=== PATIENT | female | born 1950 | race Caucasian/White ===

== ENCOUNTER 2023-07-03 14:11 | Outpatient (AMB) | payer MEDICARE, OTHER, SELFPAY ==
--- NOTE | 2023-07-03 14:13 | A.OFFVIS_ITS ---
Intake Vital Signs 3 07/03/23 14:19 Height 5 ft 6.5 in Weight 143 lb BMI 22.7 Blood Pressure Location Lt brachial Position Sitting Respiration 12 Pulse 86 Pulse Source Pulse Oximeter Pulse Oximetry (%) 98 Oxygen Delivery Method Room Air Intake Visit Reasons: CHRONIC LOW BACK PAIN Allergies Penicillins Allergy (Severe, Verified 07/03/23 14:26) Anaphylaxis Sulfa (Sulfonamide Antibiotics) Allergy (Severe, Verified 07/03/23 14:26) Anaphylaxis cefaclor Adverse Reaction (Severe, Verified 07/03/23 14:26) Hives ciprofloxacin Adverse Reaction (Severe, Verified 07/03/23 14:26) Hives clindamycin Adverse Reaction (Severe, Verified 07/03/23 14:26) Rash codeine Adverse Reaction (Severe, Verified 07/03/23 14:26) Itching iodine Adverse Reaction (Severe, Verified 07/03/23 14:26) Hives morphine Adverse Reaction (Severe, Verified 07/03/23 14:26) Rash moxifloxacin Adverse Reaction (Severe, Verified 07/03/23 14:26) hives pregabalin Adverse Reaction (Severe, Verified 07/03/23 14:26) cramps Medication List - Last Reconciled 07/03/23 by Concha Owens LPN albuterol sulfate 90 mcg/actuation inhalation bupropion HCl 75 mg PO QAM estradiol transdermal estradiol 0.01%(0.1mg/gram) vaginal famotidine 40 mg PO DAILY hydrochlorothiazide 12.5 mg PO DAILY hydrocodone-acetaminophen 10-325 mg 1 tab PO BID PRN levothyroxine 88 mcg PO DAILY lorazepam 1 mg PO TID meloxicam 7.5 mg PO BID nicotine (Nicotrol) inhalation perindopril erbumine 2 mg PO DAILY tizanidine 2 mg PO Q8H PRN zafirlukast 20 mg PO BID HPI HPI Comments 2 History of Present Illness0 Details Rohini is a very pleasant 73-year-old female presents the office for evaluation management of her chronic lower back pain Patient has been suffering with this pain for many years but it became much worse over the last 6 months and even worse over the last week. She recently moved and had to carry things up stairs in the process and then this week was shoveling snow which exacerbated her pain. She was seen at [facility] and told they do not offer trigger point and could do spinal injections but she did not want to proceed with treatment at their office. She felt the provider was short and didn't listen. Patient has failed almost 1 year of conservative therapy including NSAIDs, muscle relaxers, opioid medications and HEP all without improvement in her pain. Patient cannot take lyrica or gabapentin, did not tolerate in past. She reports pain to left buttocks radiating into left groin and thigh. She has noticed left calf muscle spasms and some numbness/tingling of the left leg. Patient denies new loss of bowel, bladder or saddle anesthesia. Patient has not been prescribed any steroid medications for this pain over the last year, she tolerates prednisone only at low dose and does not take more than 10mg daily. In terms of muscle damage condition is described as aching, stabbing, cramping, shooting, hot, burning, sharp, squeezing, pins and needles. Pain is negatively impacting patients enjoyment of life, general activity, mood, recreational activities, relationships with people, sleep and walking Review of Systems Const All systems reviewed & are unremarkable except as noted in HPI and below Physical Exam Vital Signs: Last Vital Signs Pulse 86 07/03/23 14:19 Resp 12 07/03/23 14:19 Pulse Ox 98 07/03/23 14:19 Oxygen Delivery Method Room Air 07/03/23 14:19 BMI result Body Mass Index 22.7 General: awake, alert, oriented. Answers questions appropriately. Fully engaged in examination. Skin: warm, dry, intact HEENT: Normocephalic. Hearing intact. Cardiac: External chest normal in appearance. Respiratory: No cough, audible wheezing or stridor. Abdomen: without gross distension. MS: No obvious swelling or deformities. Able to transition from sit to stand unassisted. Ambulates with bilaterally normal heel strike and toe off Tenderness left PSIS Jorje positive bilaterally SI compression positive Left Gaenslen positive left SLR positive left Thigh thrust positive left Tenderness lumbar paraspinal muscles Decreased lumbar ROM Neurological: Oriented to person, place, time and situation. Thought process intact. Psychiatric: Appropriate mood and affect. Good judgment and insight. Results Reviewed Results Reviewed: 06/21/2023 MRI LS Assessment & Plan Assessment & Plan (1) Lumbar facet arthropathy: Code(s): M47.816 - Spondylosis without myelopathy or radiculopathy, lumbar region (2) Sacroiliac joint dysfunction of left side: Code(s): M53.3 - Sacrococcygeal disorders, not elsewhere classified (3) Neuropathy: Comment: RLE Code(s): G62.9 - Polyneuropathy, unspecified Plan Rohini is a very pleasant 73 year female who presents to the office today for evaluation management of her chronic lower back pain. History, physical exam and provocative testing consistent with lumbar spondylosis and left sacroiliac joint dysfunction. Zynex Tens unit ordered, pamphlet provided and patient instructed on use EMG ordered to evaluate for left lower extremity neuropathy Discussed options for treatment including diagnostic interventional testing, epidural steroid injections, peripheral nerve stimulation with Sprint, RFA and more permanent neuromodulation. Prednisone 5 mg p.o. twice daily. Patient like to try oral steroids to see if this will help with the inflammation pain before proceeding to injections. All questions and concerns have been answered and patient agrees with the plan. Follow up after EMG and sooner if needed. Orders: Orders 2 NE electromyogram (EMG) Today G62.9 - Polyneuropathy, unspecified Medications: New 2 prednisone 5 mg PO BID 14 tabs 0RF Coding Level of Care Code New Pt Level 4 (32435) Diagnoses Lumbar facet arthropathy M47.816 Sacroiliac joint dysfunction of left side M53.3 Neuropathy G62.9
[2023-07-03 14:19] VITALS: PULSE 86; RESP 12; O2SAT 98; BMI 22.7
== END 2023-07-03 15:16 | disposition home or self-care (01) ==
PROVIDERS: PCP Nurse Practitioner Adult Health; Visit Provider Registered Nurse Emergency
DX: M47.816 Spondylosis without myelopathy or radiculopathy, lumbar region (principal); M53.3 Sacrococcygeal disorders, not elsewhere classified; G62.9 Polyneuropathy, unspecified; R20.2 Paresthesia of skin
CPT/HCPCS: 99204

== ENCOUNTER → 2023-07-03 14:11 | Outpatient (BNVA) | payer MEDICARE, OTHER, SELFPAY | PROVIDERS: PCP Nurse Practitioner Adult Health; Visit Provider Registered Nurse Emergency | DX: M47.816 Spondylosis without myelopathy or radiculopathy, lumbar region (principal); M53.3 Sacrococcygeal disorders, not elsewhere classified; G62.9 Polyneuropathy, unspecified | CPT/HCPCS: 99202 ==

== ENCOUNTER 2023-08-09 08:17 | Outpatient (REF) | payer MEDICARE, OTHER, SELFPAY ==
--- NOTE | 2023-08-09 08:20 | EMG_ITS ---
Left tibial and peroneal motor studies were performed. Left superficial peroneal and sural sensory studies were performed. Median and lateral plantar sensory studies were performed. Tibial H-reflex was obtained and paraspinal muscles were tested with a needle. IMPRESSION: 1. [id number] axonal sensory motor peripheral neuropathy. 2. Chronic left lower lumbar radiculopathy. MD PRANAY Garcia/ARIELLA / [id number]
== END 2023-08-09 08:18 | disposition home or self-care (01) ==
LOC: HO.NEURO 08:17
PROVIDERS: PCP Nurse Practitioner Adult Health; Visit Provider Registered Nurse Emergency
DX: R20.2 Paresthesia of skin (principal); G62.9 Polyneuropathy, unspecified
CPT/HCPCS: 95886; 95910

== ENCOUNTER 2023-08-10 10:07 | Day surgery (SDC) | payer MEDICARE, OTHER, SELFPAY ==
--- NOTE | ~2023-08-10 | FL_ITS ---
EXAMINATION: XR FLUOROSCOPY WITH IMAGES CLINICAL INFORMATION: Left SI joint pain COMPARISON: None available. TECHNIQUE: Fluoroscopy Supervised By: Dr. Rk Zarate. Fluoroscopy Time: 0.12 minutes. Cumulative Dose: 0.9837 mGy. DAP: 2.26 Gycm2. Images: 1 image. FINDINGS: A single image of the left SI joint reveals needle positioned adjacent to left SI joint with contrast opacifying the soft tissues adjacent to SI joint. The visualized bones are grossly unremarkable. FL/FL guidance in OR IMPRESSION: Fluoroscopy was provided to referring physician for left SI joint pain management.
[2023-08-10 10:38] VITALS: BMI 24.4
[2023-08-10 10:42] VITALS: BP 127/70; PULSE 68; RESP 16; TEMP 36.4; O2SAT 100
--- NOTE | 2023-08-10 11:15 | MHC.SHP ---
Pre-Procedural Eval Section A - 24 Hr Update-Section A only Date of Service: 08/10/23 The patient is an INPATIENT: No Changes since office visit: Yes Patient answered all questions The patient has been examined within 24 hours of the surgical procedure. The History & Physical has been completed within 30 days and I have reviewed it.: No Section B - Complete if H&P > 30 days Chief Complaint: Sacrococcygeal disorders, not elsewhere classified Details of Present Illness: as above Relevant Family History (Specify if Yes): No Relevant Social History: None Present Medications: see Short Stay [facility] assessment Medical History: No relevant PMH History of Previous Operations: No relevant previous surgery Allergies: Allergies Allergy/AdvReac Type Severity Reaction Status Date / Time Penicillins Allergy Severe Anaphylaxis Verified 07/03/23 14:26 Sulfa (Sulfonamide Allergy Severe Anaphylaxis Verified 07/03/23 14:26 Antibiotics) cefaclor AdvReac Severe Hives Verified 07/03/23 14:26 ciprofloxacin AdvReac Severe Hives Verified 07/03/23 14:26 clindamycin AdvReac Severe Rash Verified 07/03/23 14:26 codeine AdvReac Severe Itching Verified 07/03/23 14:26 iodine AdvReac Severe Hives Verified 07/03/23 14:26 morphine AdvReac Severe Rash Verified 07/03/23 14:26 moxifloxacin AdvReac Severe hives Verified 07/03/23 14:26 pregabalin AdvReac Severe cramps Verified 07/03/23 14:26 Review of Systems Sugical H&P ROS: Negative: Constitution, Cardiovascular, Respiratory, Neurological, Psychiatric, Allergic/Immunologic, Gastrointestinal, Genitourinary, Musculoskeletal, Integumentary, Endocrine and Eyes/Ears/Nose/Throat and Yes, Specify: Hem-Onc (Factor V Leiden, not of blood thinners.) Exam Surgical H&P Exam: Normal: HEENT, Normal: Heart, Normal: Lungs, Normal: Extremities, Normal: Abdomen, Normal: Skin and Normal: Neurological Plan Diagnosis/Plan: Unchanged I have reviewed the history and physical and performed a pertinent physical examination on my patient. No changes have occurred unless specified. Time Spent With Patient Time: Total time managing care of this patient today ___15_ minutes.
--- NOTE | 2023-08-10 11:48 | PM.OP ---
Brief Operative Note Date of Service: 08/10/23 Pre-op diagnosis: Sacroiliitis Post-op diagnosis: same Procedure: diagnostic left SI joint injection. Surgeon: Rk Zarate MD Anesthesia: local Was an Rotary Veneer Machine Operator used for this Procedure?: No Estimated blood loss (mL): 0 Condition: stable Disposition: PACU
[2023-08-10 11:49] VITALS: BP 138/69; PULSE 59; TEMP 36.6; O2SAT 100
--- NOTE | 2023-08-10 11:53 | W.PM.OPN ---
Operative Note Operative Note Date of Service: 08/10/23 Narrative: left diagnostic sacroiliac joint injection Informed consent was explained thoroughly to the patient.? All questions about benefits and risks for the procedure were answered. Patient came to the operating room and was positioned prone on the operating table with the pillow under her abdomen. Time out was performed delineating name and of the patient, site and side of the procedure, nature of the procedure and potential patient?s risks. The lower back of the patient and upper buttocks was prepped with ChloraPrep prepped and draped with sterile utility drapes.? C-arm was brought over the operating field and square picture of patient's pelvis was demonstrated on the screen.? For the left-joint tilting C-arm contralateral to the site of the joint the posterior joint silhouette was delineated on the screen. Skin projection of the joint was chosen as a target of the injection and it was injected ?slightly medial to the location of the joint with 25 gauge needle using local ropivacaine0.5% without epinephrine. After that 22 gauge 3 and 1/2 inch needle was driven to the joint silhouette in tunnel vision fashion.? When needle entered the joint capsule injection of the contrast was performed demonstrating intra-articular spread of the contrast.? After that 5 cc. of ropivacaine 0.5% was injected into the joint. Upon completion of the injections the needle was removed and sterile dressing was applied.? Upon completion of the injection patient was awaken taken outside of the operating room to the recovery room where recovered uneventfully.?
== END 2023-08-10 12:22 | disposition home or self-care (01) ==
PROVIDERS: PCP Nurse Practitioner Adult Health; Visit Provider Anesthesiology
PROC: 3E0U33Z Introduction of Anti-inflammatory into Joints, Percutaneous Approach (ICD-10-PCS; CPT 27096; principal; 2023-08-10 13:10)
DX: M46.1 Sacroiliitis, not elsewhere classified (principal); M53.3 Sacrococcygeal disorders, not elsewhere classified; G89.29 Other chronic pain; M47.816 Spondylosis without myelopathy or radiculopathy, lumbar region; G62.9 Polyneuropathy, unspecified; Z79.899 Other long term (current) drug therapy; Z88.0 Allergy status to penicillin; Z88.1 Allergy status to other antibiotic agents; Z88.2 Allergy status to sulfonamides; Z88.5 Allergy status to narcotic agent; Z91.041 Radiographic dye allergy status
CPT/HCPCS: G0260; J2795; Q9965; Q9967

== ENCOUNTER → 2023-08-10 10:07 | Outpatient (BNV) | payer MEDICARE, OTHER, SELFPAY | PROVIDERS: PCP Nurse Practitioner Adult Health; Visit Provider Anesthesiology | DX: M53.3 Sacrococcygeal disorders, not elsewhere classified (principal) | CPT/HCPCS: 27096 ==

== ENCOUNTER 2023-08-15 14:23 | Outpatient (AMB) | payer MEDICARE, OTHER, SELFPAY ==
--- NOTE | 2023-08-15 14:25 | MHC.OFFVIS ---
Intake Vital Signs 08/15/23 14:30 Height 5 ft 6.5 in Weight 149 lb 8 oz BMI 23.8 BP 134/80 Blood Pressure Location Lt brachial Position Sitting Respiration 14 Pulse 89 Pulse Source Pulse Oximeter Pulse Oximetry (%) 97 Oxygen Delivery Method Room Air Intake Visit Reasons: S/p Dx SIJ Injection 08/10/23 Intake Note: Patient comes in for post-op appointment. Allergies Penicillins Allergy (Severe, Verified 08/15/23 14:30) Anaphylaxis Sulfa (Sulfonamide Antibiotics) Allergy (Severe, Verified 08/15/23 14:30) Anaphylaxis cefaclor Adverse Reaction (Severe, Verified 08/15/23 14:30) Hives ciprofloxacin Adverse Reaction (Severe, Verified 08/15/23 14:30) Hives clindamycin Adverse Reaction (Severe, Verified 08/15/23 14:30) Rash codeine Adverse Reaction (Severe, Verified 08/15/23 14:30) Itching iodine Adverse Reaction (Severe, Verified 08/15/23 14:30) Hives morphine Adverse Reaction (Severe, Verified 08/15/23 14:30) Rash moxifloxacin Adverse Reaction (Severe, Verified 08/15/23 14:30) hives pregabalin Adverse Reaction (Severe, Verified 08/15/23 14:30) cramps lidocaine Adverse Reaction (Unverified 08/15/23 15:36) Hypotension HPI HPI Comments History of Present Illness Details Rohini is back in my office after diagnostic left sacroiliac joint injection. The patient reported allergy to lidocaine so procedure was performed with ropivacaine alone. Patient reported that before the procedure her pain was 3/10. She reported that during the procedure and after the procedure her pain was also 2/10 to 3/10. Therefore diagnostically the sacroiliac joint injection did not demonstrate that sacroiliitis and sacroiliac joint dysfunction is the source of pain generators. Previously she was diagnosed with chronic left radiculopathy by electromyography in Dr. Gross's office. On MRI she has moderate to severe spinal canal stenosis at L4-5 with ligamentum flavum hypertrophy and possible nerve root compression. I offered today for the patient to perform transforaminal L4-5 epidural steroid injection as a diagnostic and possibly therapeutic procedure. I also offered her for consideration possibility of referral to her to a neurosurgeon, we discussed possibility of development of pelvic organ dysfunction as a result of progression of the spinal stenosis. The patient citing multiple social obligations refused to consider at least for now to go for neurosurgical consult but she agreed to go for transforaminal epidural steroid injection as above. We decided that we will try to perform this procedure when her pain is the most severe. I will schedule transforaminal epidural steroid injection for her after August 31. Patient has been suffering with this pain for many years but it became much worse over the last 6 months and even worse over the last week. She recently moved and had to carry things up stairs in the process and then this week was shoveling snow which exacerbated her pain. She was seen at [facility] and told they do not offer trigger point and could do spinal injections but she did not want to proceed with treatment at their office. She felt the provider was short and didn't listen. Patient has failed almost 1 year of conservative therapy including NSAIDs, muscle relaxers, opioid medications and HEP all without improvement in her pain. Patient cannot take lyrica or gabapentin, did not tolerate in past. She reports pain to left buttocks radiating into left groin and thigh. She has noticed left calf muscle spasms and some numbness/tingling of the left leg. Patient denies new loss of bowel, bladder or saddle anesthesia. Patient has not been prescribed any steroid medications for this pain over the last year, she tolerates prednisone only at low dose and does not take more than 10mg daily. In terms of muscle damage condition is described as aching, stabbing, cramping, shooting, hot, burning, sharp, squeezing, pins and needles. Pain is negatively impacting patients enjoyment of life, general activity, mood, recreational activities, relationships with people, sleep and walking [facility] Medical History (Updated 08/15/23 @ 15:40 by Rk Zarate MD) History of tendinitis History of right breast cancer Neuropathy Asthma HTN (hypertension) Surgical History (Updated 08/10/23 @ 10:50 by Vivek Segura RN) History of section History of hysterectomy History of right mastectomy Review of Systems Const All systems reviewed & are unremarkable except as noted in HPI and below Physical Exam Vital Signs: Last Vital Signs Pulse 89 08/15/23 14:30 Resp 14 08/15/23 14:30 BP 134/80 08/15/23 14:30 Pulse Ox 97 02/21/24 14:30 Oxygen Delivery Method Room Air 08/15/23 14:30 BMI result Body Mass Index 23.8 General: awake, alert, oriented. Answers questions appropriately. Fully engaged in examination. Skin: warm, dry, intact HEENT: Normocephalic. Hearing intact. Cardiac: External chest normal in appearance. Respiratory: No cough, audible wheezing or stridor. Abdomen: without gross distension. MS: No obvious swelling or deformities. Able to transition from sit to stand unassisted. Ambulates with bilaterally normal heel strike and toe off Tenderness left PSIS Jorje positive bilaterally SI compression positive Left Gaenslen positive left SLR positive left Thigh thrust positive left Tenderness lumbar paraspinal muscles Decreased lumbar ROM Neurological: Oriented to person, place, time and situation. Thought process intact. Psychiatric: Appropriate mood and affect. Good judgment and insight. Results Reviewed Results Reviewed: 06/21/2023 MRI LS Assessment & Plan Assessment & Plan (1) Lumbar facet arthropathy: Code(s): M47.816 - Spondylosis without myelopathy or radiculopathy, lumbar region (2) Sacroiliac joint dysfunction of left side: Code(s): M53.3 - Sacrococcygeal disorders, not elsewhere classified (3) Neuropathy: Comment: LLE Code(s): G62.9 - Polyneuropathy, unspecified (4) Radiculopathy, lumbar region: Code(s): M54.16 - Radiculopathy, lumbar region (5) Disc degeneration, lumbar: Code(s): M51.36 - Other intervertebral disc degeneration, lumbar region Plan Negative results of diagnostic sacroiliac joint injection on the left. MRI results are as above. EMG resulted in chronic left radiculopathy as well as axonal neuropathy. Will schedule her for transforaminal left L4-5 epidural steroid injection, we will avoid lidocaine on injection patient reported allergy to lidocaine. We will perform it with ropivacaine and triamcinolone. She reported that she received presumable lidocaine injections in [facility] which resulted in dizziness fainting and drop of the blood pressure. Unlikely reaction to the steroids because she received steroids after that for the injection into joints. Will prefer to perform this injection when the pain of the patient is most severe. We will schedule this procedure after 09/01/2023. Patient Instructions: I here by testify that I spent 30 minutes in conversation with this patient as well as planning her care, evaluating her prior records, evaluating prior diagnostic studies and organizing this note. Coding Level of Care Code Est Pt Level 4 (46392) Diagnoses Lumbar facet arthropathy M47.816 Sacroiliac joint dysfunction of left side M53.3 Neuropathy G62.9 Radiculopathy, lumbar region M54.16 Disc degeneration, lumbar M51.36
[2023-08-15 14:30] VITALS: BP 134/80; PULSE 89; RESP 14; O2SAT 97; BMI 23.8
== END 2023-08-15 15:10 | disposition home or self-care (01) ==
PROVIDERS: PCP Nurse Practitioner Adult Health; Visit Provider Anesthesiology
DX: M47.816 Spondylosis without myelopathy or radiculopathy, lumbar region (principal); M53.3 Sacrococcygeal disorders, not elsewhere classified; G62.9 Polyneuropathy, unspecified; M54.16 Radiculopathy, lumbar region; M51.36 Other intervertebral disc degeneration, lumbar region
CPT/HCPCS: 99214

== ENCOUNTER → 2023-08-15 14:23 | Outpatient (BNVA) | payer MEDICARE, OTHER, SELFPAY | PROVIDERS: PCP Nurse Practitioner Adult Health; Visit Provider Anesthesiology | DX: M47.816 Spondylosis without myelopathy or radiculopathy, lumbar region (principal); M53.3 Sacrococcygeal disorders, not elsewhere classified; M54.16 Radiculopathy, lumbar region; M51.36 Other intervertebral disc degeneration, lumbar region; G62.9 Polyneuropathy, unspecified | CPT/HCPCS: 99212 ==

== ENCOUNTER 2023-09-18 06:10 | Outpatient (REF) | payer MEDICARE, OTHER, SELFPAY ==
--- NOTE | ~2023-09-18 | FL_ITS ---
EXAMINATION: XR FLUOROSCOPY WITH IMAGES CLINICAL INFORMATION: Lumbar radiculopathy COMPARISON: None available. TECHNIQUE: Fluoroscopy Supervised By: Dr. Rk Zarate. Fluoroscopy Time: 0.5 minutes. Cumulative Dose: 9.11 mGy. DAP: 0.158 Gycm2. Images: 3. FINDINGS: Spinal needle within the left transforaminal space at L4/L5 with contrast injection FL/FL guidance in treatment room IMPRESSION: Left L4/L5 transforaminal injection
== END 2023-09-18 06:11 | disposition home or self-care (01) ==
LOC: CF 06:10
PROVIDERS: Visit Provider Anesthesiology
DX: M54.16 Radiculopathy, lumbar region (principal); M51.36 Other intervertebral disc degeneration, lumbar region
CPT/HCPCS: 64483; J2401; J3301; Q9967

== ENCOUNTER 2023-09-18 09:22 | Outpatient (AMB) | payer MEDICARE, OTHER, SELFPAY ==
[2023-09-18 09:35] VITALS: BP 118/70; PULSE 80; RESP 18; O2SAT 99; BMI 24.0
--- NOTE | 2023-09-18 09:35 | A.OFFVIS_ITS ---
Intake Vital Signs 09/18/23 09:35 09/18/23 10:46 Height 5 ft 6 in Weight 149 lb BMI 24.0 BP 118/70 122/70 Blood Pressure Location Lt brachial Lt brachial Position Sitting Sitting Respiration 18 16 Pulse 80 88 Pulse Source Pulse Oximeter Pulse Oximeter Pulse Oximetry (%) 99 97 Oxygen Delivery Method Room Air Room Air Comment Pre-Op Post-Op Intake Visit Reasons: LEFT L4, L5 TFESI/NO LIDOCAINE Allergies Penicillins Allergy (Severe, Verified 08/15/23 14:30) Anaphylaxis Sulfa (Sulfonamide Antibiotics) Allergy (Severe, Verified 08/15/23 14:30) Anaphylaxis cefaclor Adverse Reaction (Severe, Verified 08/15/23 14:30) Hives ciprofloxacin Adverse Reaction (Severe, Verified 08/15/23 14:30) Hives clindamycin Adverse Reaction (Severe, Verified 08/15/23 14:30) Rash codeine Adverse Reaction (Severe, Verified 08/15/23 14:30) Itching iodine Adverse Reaction (Severe, Verified 08/15/23 14:30) Hives morphine Adverse Reaction (Severe, Verified 08/15/23 14:30) Rash moxifloxacin Adverse Reaction (Severe, Verified 08/15/23 14:30) hives pregabalin Adverse Reaction (Severe, Verified 08/15/23 14:30) cramps lidocaine Adverse Reaction (Unverified 08/15/23 15:36) Hypotension [facility] Medical History (Updated 08/15/23 @ 15:40 by Rk Zarate MD) History of tendinitis History of right breast cancer Neuropathy Asthma HTN (hypertension) Surgical History (Updated 08/10/23 @ 10:50 by Vivek Segura RN) History of section History of hysterectomy History of right mastectomy Physical Exam Vital Signs: Last Vital Signs Pulse 88 09/18/23 10:46 Resp 16 09/18/23 10:46 BP 122/70 09/18/23 10:46 Pulse Ox 97 09/18/23 10:46 Oxygen Delivery Method Room Air 09/18/23 10:46 BMI result Body Mass Index 24.0 Assessment & Plan Assessment & Plan (1) Disc degeneration, lumbar: Code(s): M51.36 - Other intervertebral disc degeneration, lumbar region (2) Radiculopathy, lumbar region: Code(s): M54.16 - Radiculopathy, lumbar region Plan L4-5 transforaminal epidural steroid injection on the left Transforaminal epidural steroid injection Informed consent was thoroughly explained to the patient before the procedure.? The patient came to the operating room.? He was positioned prone on operating table with a pillow under his abdomen.? Time-out was performed delineating correct site and side of the procedure, nature of the injection, name and date of of the patient. The lower back of the patient was prepped with ChloraPrep and draped with sterile utility towels.? C-arm was brought over the operating field and sq picture L4 vertebra were demonstrated on the screen.? The right side was chosen as the side of the injection.? Tilting machine ipsilateral to the left at the level of L4 the most prominent picture of the left pedicle was obtained on the screen.? 3 mm below the level of the lowest point of the pedicle projection to the skin small amount of chloroprocaine 1% 3-4 cc was injected to anesthetize the skin.? After that 5 in 22 gauge Quincke point needle was inserted through the skin wheal and was advanced to were the L4-5 foramina on anterior posterior , lateral and oblique views intermittently.? When tip of the needle entered foramina projection on AP view injection of the contrast was performed demonstrating epidural and perineural spread of the contrast.? On the lateral view contrast was spread in the epidural fashion. After that injection of the treatment medicine 4 cc of Chloroprocaine 1% mixed with Kenalog 40 mg was injected into the foramina.? Injection of the contrast and injection of the treatment medicine was observed live on the screen.? No intrathecal and no intravascular spread of the contrast was noted Upon completion of the procedure sterile Band-Aids were applied. Patient tolerated procedure well he was taken outside of the operating room where he recovered uneventfully.? He went home without immediate complications. Orders: Orders FL guidance in treatment room Today M54.16 - Radiculopathy, lumbar region Coding Level of Care Code Procedure Only Diagnoses Disc degeneration, lumbar M51.36 Radiculopathy, lumbar region M54.16
[2023-09-18 10:46] VITALS: BP 122/70; PULSE 88; RESP 16; O2SAT 97
== END 2023-09-18 10:51 | disposition home or self-care (01) ==
LOC: HO.PMCPRC 09:22
PROVIDERS: PCP Nurse Practitioner Adult Health; Visit Provider Anesthesiology
DX: M54.16 Radiculopathy, lumbar region (principal)
CPT/HCPCS: 64483

== ENCOUNTER 2023-10-12 09:47 | Outpatient (AMB) | payer MEDICARE, OTHER, SELFPAY ==
[2023-10-12 09:58] VITALS: BP 158/75; PULSE 80; RESP 18; O2SAT 98; BMI 22.8
--- NOTE | 2023-10-12 09:58 | A.OFFVIS_ITS ---
Vital Signs 3 10/12/23 09:58 Height 5 ft 6 in Weight 141 lb 8 oz BMI 22.8 BP 158/75 H Blood Pressure Location Lt brachial Position Sitting Respiration 18 Pulse 80 Pulse Source Pulse Oximeter Pulse Oximetry (%) 98 Oxygen Delivery Method Room Air Intake Visit Reasons: LEFT L4, L5 TFESI/09/18/23 Allergies Penicillins Allergy (Severe, Verified 10/12/23 09:57) Anaphylaxis Sulfa (Sulfonamide Antibiotics) Allergy (Severe, Verified 10/12/23 09:57) Anaphylaxis cefaclor Adverse Reaction (Severe, Verified 10/12/23 09:57) Hives ciprofloxacin Adverse Reaction (Severe, Verified 10/12/23 09:57) Hives clindamycin Adverse Reaction (Severe, Verified 10/12/23 09:57) Rash codeine Adverse Reaction (Severe, Verified 10/12/23 09:57) Itching iodine Adverse Reaction (Severe, Verified 10/12/23 09:57) Hives morphine Adverse Reaction (Severe, Verified 10/12/23 09:57) Rash moxifloxacin Adverse Reaction (Severe, Verified 10/12/23 09:57) hives pregabalin Adverse Reaction (Severe, Verified 10/12/23 09:57) cramps lidocaine Adverse Reaction (Verified 10/12/23 09:57) Hypotension HPI Comments Details: Rohini presents back to the office today for follow-up, 3 weeks status post left L4-5 transforaminal epidural steroid injection Patient tolerated the procedure well She reports 70% pain relief with improvement in functional mobility since the injection. Denies any untoward effects Prior visit with Dr Zarate: Rohini is back in my office after diagnostic left sacroiliac joint injection. The patient reported allergy to lidocaine so procedure was performed with ropivacaine alone. Patient reported that before the procedure her pain was 3/10. She reported that during the procedure and after the procedure her pain was also 2/10 to 3/10. Therefore diagnostically the sacroiliac joint injection did not demonstrate that sacroiliitis and sacroiliac joint dysfunction is the source of pain generators. Previously she was diagnosed with chronic left radiculopathy by electromyography in Dr. Gross's office. On MRI she has moderate to severe spinal canal stenosis at L4-5 with ligamentum flavum hypertrophy and possible nerve root compression. I offered today for the patient to perform transforaminal L4-5 epidural steroid injection as a diagnostic and possibly therapeutic procedure. I also offered her for consideration possibility of referral to her to a neurosurgeon, we discussed possibility of development of pelvic organ dysfunction as a result of progression of the spinal stenosis. The patient citing multiple social obligations refused to consider at least for now to go for neurosurgical consult but she agreed to go for transforaminal epidural steroid injection as above. We decided that we will try to perform this procedure when her pain is the most severe. I will schedule transforaminal epidural steroid injection for her after August 31. Patient has been suffering with this pain for many years but it became much worse over the last 6 months and even worse over the last week. She recently moved and had to carry things up stairs in the process and then this week was shoveling snow which exacerbated her pain. She was seen at [facility] and told they do not offer trigger point and could do spinal injections but she did not want to proceed with treatment at their office. She felt the provider was short and didn't listen. Patient has failed almost 1 year of conservative therapy including NSAIDs, muscle relaxers, opioid medications and HEP all without improvement in her pain. Patient cannot take lyrica or gabapentin, did not tolerate in past. She reports pain to left buttocks radiating into left groin and thigh. She has noticed left calf muscle spasms and some numbness/tingling of the left leg. Patient denies new loss of bowel, bladder or saddle anesthesia. Patient has not been prescribed any steroid medications for this pain over the last year, she tolerates prednisone only at low dose and does not take more than 10mg daily. In terms of muscle damage condition is described as aching, stabbing, cramping, shooting, hot, burning, sharp, squeezing, pins and needles. Pain is negatively impacting patients enjoyment of life, general activity, mood, recreational activities, relationships with people, sleep and walking [facility] Medical History (Updated 08/15/23 @ 15:40 by Rk Zarate MD) History of tendinitis History of right breast cancer Neuropathy Asthma HTN (hypertension) Surgical History (Updated 08/10/23 @ 10:50 by Vivek Segura RN) History of section History of hysterectomy History of right mastectomy Review of Systems Const All systems reviewed & are unremarkable except as noted in HPI and below Physical Exam Vital Signs: Last Vital Signs Pulse 80 10/12/23 09:58 Resp 18 10/12/23 09:58 BP 158/75 H 10/12/23 09:58 Pulse Ox 98 10/12/23 09:58 Oxygen Delivery Method Room Air 10/12/23 09:58 BMI result Body Mass Index 22.8 General: awake, alert, oriented. Answers questions appropriately. Fully engaged in examination. Skin: warm, dry, intact HEENT: Normocephalic. Hearing intact. Cardiac: External chest normal in appearance. Respiratory: No cough, audible wheezing or stridor. Abdomen: without gross distension. MS: No obvious swelling or deformities. Able to transition from sit to stand unassisted. Ambulates with bilaterally normal heel strike and toe off Neurological: Oriented to person, place, time and situation. Thought process intact. Psychiatric: Appropriate mood and affect. Good judgment and insight. Results Reviewed Results Reviewed: 06/21/2023 MRI LS Assessment & Plan Assessment & Plan (1) Lumbar facet arthropathy: Code(s): M47.816 - Spondylosis without myelopathy or radiculopathy, lumbar region Category: Medical (2) Sacroiliac joint dysfunction of left side: Code(s): M53.3 - Sacrococcygeal disorders, not elsewhere classified Category: Medical (3) Neuropathy: Comment: LLE Code(s): G62.9 - Polyneuropathy, unspecified Category: Medical Plan Rohini is a very pleasant 73 year female who presents to the office today for follow-up 3 weeks status post left L4-5 transforaminal epidural steroid injection She reports 70% pain relief with improvement in functional ability since the injection Denies any untoward effects All questions and concerns have been answered and patient agrees with the plan. Follow up for repeat injection November 2023, sooner if needed.
== END 2023-10-12 10:46 | disposition home or self-care (01) ==
PROVIDERS: PCP Nurse Practitioner Adult Health; Visit Provider Registered Nurse Emergency
DX: M47.816 Spondylosis without myelopathy or radiculopathy, lumbar region (principal); M53.3 Sacrococcygeal disorders, not elsewhere classified; G62.9 Polyneuropathy, unspecified
CPT/HCPCS: 99213

== ENCOUNTER → 2023-10-12 09:47 | Outpatient (BNVA) | payer MEDICARE, OTHER, SELFPAY | PROVIDERS: PCP Nurse Practitioner Adult Health; Visit Provider Registered Nurse Emergency | DX: M47.816 Spondylosis without myelopathy or radiculopathy, lumbar region (principal); M53.3 Sacrococcygeal disorders, not elsewhere classified; G62.9 Polyneuropathy, unspecified | CPT/HCPCS: 99212 ==